=== PATIENT | male | born 1935 | race Caucasian/White ===

== ENCOUNTER 2016-08-23 16:33 | Observation (INO) | payer MEDICARE, OTHER ==
--- NOTE | ~2016-08-23 | DS ---
Discharge Summary [facility] [address] [place]. [address] NAME: NATALIA BELCHER : 33 STATUS : DIS [place] PAT#: [id number] AGE: 81 ADM/REG DATE : 08/23/16 MR#: [id number] REPORT SERV DATE: 08/26/16 DICTATED BY: SELENE PITTMAN DATE: 08/25/16 REPORT STATUS : Draft TRANSCRIBED BY: MODL DATE: 08/25/16 ADMISSION DATE: 08/23/2016 DISCHARGE DATE: 08/25/2016 PRINCIPAL DIAGNOSIS: Cellulitis associated with retained sutures. SECONDARY DIAGNOSES: 1. 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 2. Type 2 diabetes with hypoglycemia and altered mental status. 3. Chronic kidney disease. 4. Coronary artery disease with recent CABG and AV repair. HISTORY OF PRESENT ILLNESS: Please see Dr. Sandra's dictation on 08/23. HOSPITAL COURSE: Admitted with cellulitis of lower extremity associated with suture retention. Patient received antibiotics with actually marked improvement of the first 24 hours. Cultures were negative. It was felt that the edema may have worsened his susceptibility to cellulitis. Sutures were removed. Norvasc was discontinued with hydralazine replacing the medication and JUANY stockings being added. He had no further issues with hypoglycemia off the Amaryl, was restarted that at 1 mg instead of 2 and was able to return home on 08/25 in satisfactory condition. Low sodium diet, 1800 ADA. Activity as tolerated. Follow up with Dr. Matthews as otherwise scheduled and with Dr. Trenton Zhong in 1-2 weeks. CHERRY/JOSE Selene Pittman M.D. / [id number] CC: Malena Henderson II, M.D. Richard Morrison, M.D.
--- NOTE | ~2016-08-23 | HP ---
History And Physical [id number] [place]. [address] NAME: NATALIA BELCHER : 34 STATUS : [facility]M [facility]#: [id number] AGE: 81 ADM/REG DATE : 08/23/16 MR#: [id number] REPORT SERV DATE: 08/23/16 DICTATED BY: CECILIA INTERIANO DATE: 08/23/16 REPORT STATUS : Draft TRANSCRIBED BY: MODL DATE: 08/23/16 DATE OF ADMISSION: 08/23/2016 CHIEF COMPLAINT: Frequent urination and disoriented with fevers this morning. HISTORY OF PRESENT ILLNESS: The patient is an 81-year-old very pleasant, male with past medical history of coronary artery disease, peripheral artery disease, hypertension, CKD, dementia fairly functional, type 2 diabetes, recent admission under Dr. Matthews for CABG x5 aortic valve replacement who presents after having doing fairly well recovery but noticed that he had been more confused today and additionally reporting that he had fevers. Fevers are also reported in the emergency room. The patient also states that he has had frequent urination in the last 24 hours, particularly noted today. Symptoms have been constant, moderate severity but no pain or radiating symptoms although he has had fever with confusion, chills. No nausea or vomiting, has had constipation, no diarrhea. No palpitations. There are no worsening symptoms but no relieving symptoms. Symptoms are still currently present. REVIEW OF SYSTEMS: GENERAL: He has had fevers and chills. EYES: No eye pain or visual changes. ENT: No sore throat or congestion. NEURO: No headache, but did have confusion. SKIN: Does have rash and erythema at prior surgical sites on the lower extremities, left side particularly. RESPIRATORY: No shortness of breath but did have cough. CV: No chest pain or palpitations. GI: No nausea or vomiting, but does have constipation and hemorrhoids. : Does have frequency but no hematuria. MUSCULOSKELETAL: No myalgias or arthralgias. ENDO: No fatigue but did have polyuria. HEME: No bleeding or bruising. IMMUNOLOGIC: No rhinorrhea. PSYCH: No anxiety but mild confusion. PAST MEDICAL HISTORY: History of prostate cancer, prostatectomy, hypertension, hyperlipidemia, type 2 diabetes, CKD stage IIIB, YE, coronary artery disease status post 5 vessel CABG, aortic stenosis status post valve replacement. FAMILY HISTORY: Renal cell carcinoma and NV. SOCIAL HISTORY: Retired infrastructure design engineer, prior smoker, and quit smokeless tobacco approximately two months ago. No alcohol or illicits. and accompanied by son who is at bedside and marine electrician, has daughter who is a preschool assistant. SURGERIES: CABG x5 during most recent hospitalization and aortic valve repair. History And Physical [address] [address] NAME: NATALIA BELCHER : 33 STATUS : ADM [facility]#: [id number] AGE: 81 ADM/REG DATE : 08/23/16 MR#: [id number] REPORT SERV DATE: 08/23/16 DICTATED BY: CECILIA INTERIANO DATE: 08/23/16 REPORT STATUS : Draft TRANSCRIBED BY: JOSE DATE: 08/23/16 ALLERGIES: TO MORPHINE. MEDICATIONS: List still pending. PHYSICAL EXAMINATION: VITAL SIGNS: The patient's blood pressure 135/75, temperature 100.8, pulse 91, respirations 22, and O2 sat 99%. GENERAL: No acute distress. Calm, pleasant, well developed, well nourished. EYES: No scleral icterus. EOMI. ENT: Nares patent. Tongue midline. No thrush. NECK: No JVD. Supple. CHEST: Equal chest expansion. No increased AP diameter. Surgical site is clear and dry. CV: Regular rate. No rubs. Mild systolic ejection murmur. Pulses palpable in all 4 extremities. GROIN: Femoral pulses bounding. RESPIRATORY: Clear to auscultation. No wheezes, rales, no dullness to percussion. ABDOMEN: Soft, nontender, nondistended. Bowel sounds positive. : Uncircumcised, does have hemorrhoids that are nonthrombosed, and groins good pulses bilaterally. EXTREMITIES: Does have left-sided cellulitis on suture sites. Mild redness on right lower extremity less than dime size. NEURO: Alert and oriented. Moves all extremities x4. Does have hard of hearing. Appears to have improved neuro status from initial presentation earlier today. SKIN: Warm and dry with erythema left lower extremities. PSYCH: Appropriate mood and affect. HEME: No acute bleeding or bruising. PERTINENT LABS: CMP; procalcitonin 1.41. Sodium 140, potassium 4.1, chloride 102, bicarb 29, BUN creatinine 38 and 1.93. LFTs within normal limits. Alkaline phosphatase 124. CBC: WBC count 16.5, H and H 11.7 and 35, platelets 234, bands 11, INR 2.5, lactate was 1.1. Urinalysis clear. EKG is normal sinus rhythm with incomplete left bundle status post recent CABG. HOME MEDICATIONS: Norvasc, vitamin C, aspirin, statin, Coreg, Colace, Amaryl, [place], multivitamin, Protonix, Demadex, and warfarin. ASSESSMENT AND PLAN: 1. Cellulitis. 2. Systemic inflammatory response syndrome. 3. Acute encephalopathy. 4. MRSA exposure. 5. Chronic kidney disease IIIB. 6. Diabetes type 2, non-insulin dependent. PLAN: History And Physical [address] [address] NAME: NATALIA BELCHER : 33 STATUS : [facility]#: [id number] AGE: 81 ADM/REG DATE : 08/23/16 MR#: [id number] REPORT SERV DATE: 08/23/16 DICTATED BY: CECILIA INTERIANO DATE: 08/23/16 REPORT STATUS : Draft TRANSCRIBED BY: JOSE DATE: 08/23/16 1. For cellulitis, note that left side surgical site does have MRSA history since recent hospital discharge. We will broaden antibiotic coverage to cefepime and vanc as the patient does have significant SIRS symptoms although cellulitis may be initial agent. We will cover for possible respiratory component and urinary component. 2. SIRS. It is unclear if this is strictly secondary to cellulitis versus additional underlying infection. We will cover for respiratory and urine as patient does have bands, procalcitonin of greater than 1, leukocytosis, tachycardia, and mild encephalopathy. We will deescalate antibiotics as indicated as mental status has already started to improve. Urinalysis within normal limits. 3. Acute encephalopathy, treating SIRS. 4. MRSA exposure, vanc empirically. 5. CKD stage IIIB, follows with Nephrology, currently stable. 6. Diabetes type 2, sliding scale insulin. Hold p.o. medications. All questions answered with the patient family at bedside. DDN/MODL Cecilia Interiano MD / [id number] CC: MD Trenton Zafar II, M.D.
[2016-08-23 14:36] LABS: BASOPHILS 0.2 %; BASOPHILS ABSOLUTE 0.03 10/3/uL (0.0-0.16); EOSINOPHILS 0.2 %; EOSINOPHILS ABSOLUTE 0.03 10/3/uL (0.0-0.53); IMMATURE GRANULOCYTES 0.3 %; LYMPHOCYTES ABSOLUTE 0.82 10/3/uL (0.67-4.30); MEAN CORPUS HGB CONC 33.4 g/dL (32.0-36.0); MEAN CORPUSCULAR HEMOGLOB 29.7 pg (26.0-34.0); MEAN PLATELET VOLUME 8.7 fL (9.2-13.0); MONOCYTES 8.8 %; MONOCYTES ABSOLUTE 1.45 10/3/uL (0.21-1.20); NEUTROPHILS 85.5 %; NEUTROPHILS ABSOLUTE 14.16 10/3/uL (2.02-8.40); PLATELET COUNT 234 10/3/uL (150-400); RBC DISTRIBUTION WIDTH 14.2 % (12.0-16.0)
[2016-08-23 14:38] LABS: ER CBC TAT 0 Hrs 07 Mins; HEMOGLOBIN 11.7 g/dL (13.6-17.8); IMMATURE GRANULOCYTES ABSOLUTE 0.05 10/3/uL (0.0-0.11); MANUAL DIFF NO %; MEAN CORPUSCULAR VOLUME 88.8 fL (80-100); RED CELL COUNT 3.94 10/6/uL (4.7-6.1); WHITE BLOOD CELLS 16.5 10/3/uL (4.5-10.5)
[2016-08-23 14:39] LABS: ASCORBIC ACID (UR NOT ORDER) 40 (NEG); BILIRUBIN, URINE NEGATIVE (NEG); ER URINALYSIS TAT 0 Hrs 07 Mins; KETONE, URINE NEGATIVE (NEG); LEUKOCYTE ESTERASE(NOT OR NEG (NEG); NITRITE (URINE) NEG (NEG); WBC (NOT ORDERED) (RFLEX) < 1 (0-5)
[2016-08-23 14:48] LABS: INTERNATIONAL NORMAL RATI 2.5 UNITS (-); PARTIAL THROMBO TIME 35.3 SEC (22.5-37.2)
[2016-08-23 14:49] LABS: PROTIME (NOT ORD) 26.9 SEC (12.0-14.5)
[2016-08-23 14:50] LABS: CALCIUM, SERUM 8.7 MG/DL (8.5-10.4); CHLORIDE, SERUM 102 MMOL/L (96-112); CO2 (CARBON DIOXIDE) 29 MMOL/L (24-34); CREATININE 1.93 MG/DL (0.70-1.30); GFR AFRICAN AMERICAN 37 ML/MIN (>=60); GFR NON AFRICAN AMERICAN 32 ML/MIN (>=60); POTASSIUM, SERUM 4.1 MMOL/L (3.5-5.3); SGOT(AST) 26 U/L (5-40); SGPT(ALT) 32 U/L (5-65); SODIUM, SERUM 140 MMOL/L (135-148); TOTAL BILIRUBIN 0.6 MG/DL (0-1.2); TOTAL PROTEIN 7.3 G/DL (6.0-8.5)
[2016-08-23 14:51] LABS: A/G RATIO 0.9 (0.7-1.9); ALBUMIN 3.4 G/DL (3.5-5.0); ALKALINE PHOSPHATASE 124 U/L (45-117); BUN (BLOOD UREA NITROGEN) 38 MG/DL (6-23); GLOBULIN 3.9 G/DL (2.5-4.1); GLUCOSE, SERUM 85 MG/DL (60-99)
[2016-08-23 14:54] LABS: LACTATE 1.1 MMOL/L (0.3-2.4)
[2016-08-23 14:58] LABS: BAND NEUTROPHILS 11 %; ER DIFF TAT 0 Hrs 27 Mins; LYMPHOCYTES 5 %; LYMPHOCYTES ABSOLUTE (CALC) 0.83 10/3/uL (0.67-4.30); MONOCYTES 11 %; MONOCYTES ABSOLUTE (CALC) 1.82 10/3/uL (0.21-1.20); NEUTROPHILS ABSOLUTE (CALC) 13.86 10/3/uL (2.02-8.40); PLATELET ESTIMATE ADQ (ADEQUATE); RBC MORPHOLOGY NORM (NORMAL); SEGMENTED NEUTROPHIL (0) 73 %; TOTAL NUCLEATED CELLS 100
[2016-08-23 15:24] LABS: PROCALCITONIN 1.41 ng/mL (<0.5)
[~2016-08-23 16:33] MED LIST: ASAB PO; COREG6 PO; GLUCOPHAGE1000 MG PO; GLUCPH PO; HYZAAR 100/25 T1 TAB PO; LIPITOR40 PO; NAP500 PO
[2016-08-23] MEDS ORDERED: MULTIVITAMI1 PO (16:44)
[2016-08-23] MEDS ORDERED: VITC500 PO (16:45)
[2016-08-23] MEDS ORDERED: PROTONIX PO (16:45)
[2016-08-23] MEDS ORDERED: COREG3 PO (16:47)
[2016-08-23] MEDS ORDERED: NORV5 PO (16:48)
[2016-08-23] MEDS ORDERED: DEMA20 PO (16:48)
[2016-08-23] MEDS ORDERED: LIPITOR40 PO (16:48)
[2016-08-23] MEDS ORDERED: ASAB PO (16:48)
[2016-08-23] MEDS ORDERED: AMARYL2 PO (16:49)
[2016-08-23] MEDS ORDERED: DSS PO (16:49)
[2016-08-23] MEDS ORDERED: COUMADIN4 MG PO (16:49)
[2016-08-23] MEDS ORDERED: NORCO1 TA1 PO (16:50)
[2016-08-24 05:39] LABS: BASOPHILS 0.2 %; BASOPHILS ABSOLUTE 0.03 10/3/uL (0.0-0.16); EOSINOPHILS 0.2 %; EOSINOPHILS ABSOLUTE 0.04 10/3/uL (0.0-0.53); HEMOGLOBIN 10.1 g/dL (13.6-17.8); IMMATURE GRANULOCYTES 0.4 %; IMMATURE GRANULOCYTES ABSOLUTE 0.07 10/3/uL (0.0-0.11); LYMPHOCYTES ABSOLUTE 1.37 10/3/uL (0.67-4.30); MEAN CORPUS HGB CONC 33.7 g/dL (32.0-36.0); MEAN CORPUSCULAR HEMOGLOB 30.8 pg (26.0-34.0); MEAN CORPUSCULAR VOLUME 91.5 fL (80-100); MEAN PLATELET VOLUME 9.1 fL (9.2-13.0); MONOCYTES 8.4 %; MONOCYTES ABSOLUTE 1.44 10/3/uL (0.21-1.20); NEUTROPHILS 82.8 %; NEUTROPHILS ABSOLUTE 14.24 10/3/uL (2.02-8.40); PLATELET COUNT 221 10/3/uL (150-400); RBC DISTRIBUTION WIDTH 14.3 % (12.0-16.0); RED CELL COUNT 3.28 10/6/uL (4.7-6.1); WHITE BLOOD CELLS 17.2 10/3/uL (4.5-10.5)
[2016-08-24 05:40] LABS: MANUAL DIFF NO %
[2016-08-24 05:44] LABS: INTERNATIONAL NORMAL RATI 2.9 UNITS (-); PROTIME (NOT ORD) 29.7 SEC (12.0-14.5)
[2016-08-24 05:47] LABS: BUN (BLOOD UREA NITROGEN) 35 MG/DL (6-23); CALCIUM, SERUM 8.1 MG/DL (8.5-10.4); CHLORIDE, SERUM 105 MMOL/L (96-112); CO2 (CARBON DIOXIDE) 27 MMOL/L (24-34); CREATININE 1.73 MG/DL (0.70-1.30); GFR AFRICAN AMERICAN 42 ML/MIN (>=60); GFR NON AFRICAN AMERICAN 36 ML/MIN (>=60); POTASSIUM, SERUM 3.5 MMOL/L (3.5-5.3); SODIUM, SERUM 142 MMOL/L (135-148)
[2016-08-24 05:51] LABS: GLUCOSE, SERUM 41 MG/DL (60-99)
[2016-08-24 12:00] LABS: % IRON SAT 8 % (20-50); FERRITIN 197 NG/ML (26-388); IRON BINDING CAPACITY 226 MCG/DL (250-450); IRON, SERUM 17 MCG/DL (35-150)
[2016-08-25 05:26] LABS: BASOPHILS 0.3 %; BASOPHILS ABSOLUTE 0.03 10/3/uL (0.0-0.16); EOSINOPHILS 1.5 %; EOSINOPHILS ABSOLUTE 0.15 10/3/uL (0.0-0.53); HEMOGLOBIN 10.1 g/dL (13.6-17.8); IMMATURE GRANULOCYTES 0.3 %; IMMATURE GRANULOCYTES ABSOLUTE 0.03 10/3/uL (0.0-0.11); LYMPHOCYTES 11.8 %; LYMPHOCYTES ABSOLUTE 1.15 10/3/uL (0.67-4.30); MEAN CORPUS HGB CONC 33.7 g/dL (32.0-36.0); MEAN CORPUSCULAR HEMOGLOB 30.9 pg (26.0-34.0); MEAN CORPUSCULAR VOLUME 91.7 fL (80-100); MEAN PLATELET VOLUME 9.1 fL (9.2-13.0); MONOCYTES ABSOLUTE 0.98 10/3/uL (0.21-1.20); NEUTROPHILS 76.1 %; NEUTROPHILS ABSOLUTE 7.42 10/3/uL (2.02-8.40); PLATELET COUNT 200 10/3/uL (150-400); RBC DISTRIBUTION WIDTH 14.2 % (12.0-16.0); RED CELL COUNT 3.27 10/6/uL (4.7-6.1)
[2016-08-25 05:36] LABS: BUN (BLOOD UREA NITROGEN) 36 MG/DL (6-23); CALCIUM, SERUM 7.9 MG/DL (8.5-10.4); CHLORIDE, SERUM 105 MMOL/L (96-112); CO2 (CARBON DIOXIDE) 27 MMOL/L (24-34); CREATININE 1.86 MG/DL (0.70-1.30); GFR AFRICAN AMERICAN 38 ML/MIN (>=60); GFR NON AFRICAN AMERICAN 33 ML/MIN (>=60); POTASSIUM, SERUM 3.7 MMOL/L (3.5-5.3); SODIUM, SERUM 141 MMOL/L (135-148)
[2016-08-25 05:37] LABS: GLUCOSE, SERUM 135 MG/DL (60-99); MANUAL DIFF NO %; WHITE BLOOD CELLS 9.8 10/3/uL (4.5-10.5)
[2016-08-25 07:15] LABS: INTERNATIONAL NORMAL RATI 2.6 UNITS (-); PROTIME (NOT ORD) 27.8 SEC (12.0-14.5)
[2016-08-25] MEDS ORDERED: APRES25 PO (11:49)
[2016-08-25] MEDS ORDERED: MONODOX100 MG PO (11:49)
== END 2016-08-25 13:30 | disposition home or self-care (01) ==
LOC: ER 16:33 → 4SO 16:54
PROVIDERS: Emergency Medicine; Internal Medicine; Student in an Organized Health Care Education/Training Program
DX: T81.4XXA Infection following a procedure, initial encounter (principal); E11.628 Type 2 diabetes mellitus with other skin complications; L03.116 Cellulitis of left lower limb; A41.9 Sepsis, unspecified organism; R65.20 Severe sepsis without septic shock; E11.22 Type 2 diabetes mellitus with diabetic chronic kidney disease; I12.9 Hypertensive chronic kidney disease with stage 1 through stage 4 chronic kidney disease, or unspecified chronic kidney disease; N18.3 Chronic kidney disease, stage 3 (moderate); G93.40 Encephalopathy, unspecified; E78.5 Hyperlipidemia, unspecified; G47.33 Obstructive sleep apnea (adult) (pediatric); I25.10 Atherosclerotic heart disease of native coronary artery without angina pectoris; Z95.1 Presence of aortocoronary bypass graft; Z20.818 Contact with and (suspected) exposure to other bacterial communicable diseases; Z82.49 Family history of ischemic heart disease and other diseases of the circulatory system; Z87.891 Personal history of nicotine dependence; Z88.5 Allergy status to narcotic agent; Z79.899 Other long term (current) drug therapy; Z79.01 Long term (current) use of anticoagulants; Z90.49 Acquired absence of other specified parts of digestive tract; Z98.890 Other specified postprocedural states; Z96.652 Presence of left artificial knee joint; Z96.642 Presence of left artificial hip joint
CPT/HCPCS: 71010; 71020; 80048; 80053; 81001; 82728; 82962; 83540; 83550; 83605; 83735; 84145; 85025; 85610; 85730; 87040; 87449; 93005; 96374; 96375; 96376; 99285; A9270-GY; G0378; J0692; J1750; J3370

== ENCOUNTER 2016-11-10 18:05 | Emergency (ER) | payer MEDICARE, OTHER ==
[2016-11-10 16:52] LABS: BASOPHILS 0.3 %; BASOPHILS ABSOLUTE 0.04 10/3/uL (0.0-0.16); EOSINOPHILS 0.3 %; EOSINOPHILS ABSOLUTE 0.04 10/3/uL (0.0-0.53); ER CBC TAT 0 Hrs 07 Mins; HEMATOCRIT 35.1 % (40.0-51.0); HEMOGLOBIN 11.9 g/dL (13.6-17.8); IMMATURE GRANULOCYTES 0.3 %; IMMATURE GRANULOCYTES ABSOLUTE 0.04 10/3/uL (0.0-0.11); LYMPHOCYTES 9.1 %; LYMPHOCYTES ABSOLUTE 1.22 10/3/uL (0.67-4.30); MEAN CORPUS HGB CONC 33.9 g/dL (32.0-36.0); MEAN CORPUSCULAR HEMOGLOB 31.3 pg (26.0-34.0); MEAN CORPUSCULAR VOLUME 92.4 fL (80-100); MEAN PLATELET VOLUME 8.8 fL (9.2-13.0); MONOCYTES 9.6 %; MONOCYTES ABSOLUTE 1.29 10/3/uL (0.21-1.20); NEUTROPHILS 80.4 %; NEUTROPHILS ABSOLUTE 10.85 10/3/uL (2.02-8.40); PLATELET COUNT 159 10/3/uL (150-400); RBC DISTRIBUTION WIDTH 14.7 % (12.0-16.0); WHITE BLOOD CELLS 13.5 10/3/uL (4.5-10.5)
[2016-11-10 16:54] LABS: MANUAL DIFF NO %
[2016-11-10 16:59] LABS: INTERNATIONAL NORMAL RATI 2.3 UNITS (-); PARTIAL THROMBO TIME 39.2 SEC (22.5-37.2)
[2016-11-10 17:07] LABS: A/G RATIO 0.9 (0.7-1.9); ALBUMIN 3.4 G/DL (3.5-5.0); BUN (BLOOD UREA NITROGEN) 36 MG/DL (6-23); CALCIUM, SERUM 8.5 MG/DL (8.5-10.4); CHLORIDE, SERUM 105 MMOL/L (96-112); CREATININE 1.98 MG/DL (0.70-1.30); GFR AFRICAN AMERICAN 35 ML/MIN (>=60); GFR NON AFRICAN AMERICAN 31 ML/MIN (>=60); GLOBULIN 3.7 G/DL (2.5-4.1); POTASSIUM, SERUM 3.8 MMOL/L (3.5-5.3); SGOT(AST) 23 U/L (5-40); SGPT(ALT) 22 U/L (5-65); SODIUM, SERUM 140 MMOL/L (135-148); TOTAL BILIRUBIN 0.7 MG/DL (0-1.2); TOTAL PROTEIN 7.1 G/DL (6.0-8.5)
[2016-11-10 17:08] LABS: CO2 (CARBON DIOXIDE) 32 MMOL/L (24-34)
[2016-11-10 17:09] LABS: ALKALINE PHOSPHATASE 85 U/L (45-117); GLUCOSE, SERUM 46 MG/DL (60-99)
[~2016-11-10 18:05] MED LIST changes: +AMARYL2 PO; +APRES25 PO; +COREG3 PO; +COUMADIN4 MG PO; +DEMA20 PO; +DSS PO; +MONODOX100 MG PO; +MULTIVITAMI1 PO; +NORCO1 TA1 PO; +NORV5 PO; +PROTONIX PO; +VITC500 PO
[2016-11-10 21:00] LABS: ASCORBIC ACID (UR NOT ORDER) NEG (NEG); BILIRUBIN, URINE NEGATIVE (NEG); ER URINALYSIS TAT 0 Hrs 13 Mins; KETONE, URINE NEGATIVE (NEG); LEUKOCYTE ESTERASE(NOT OR NEG (NEG); NITRITE (URINE) NEG (NEG); WBC (NOT ORDERED) (RFLEX) 1 (0-5)
== END 2016-11-10 20:30 | disposition home or self-care (01) ==
LOC: ER 18:05
PROVIDERS: Emergency Medicine
DX: E11.649 Type 2 diabetes mellitus with hypoglycemia without coma (principal); I73.9 Peripheral vascular disease, unspecified; I25.2 Old myocardial infarction; I12.9 Hypertensive chronic kidney disease with stage 1 through stage 4 chronic kidney disease, or unspecified chronic kidney disease; N18.9 Chronic kidney disease, unspecified; Z95.1 Presence of aortocoronary bypass graft; Z87.891 Personal history of nicotine dependence; Z88.5 Allergy status to narcotic agent; Z79.01 Long term (current) use of anticoagulants; Z79.82 Long term (current) use of aspirin; Z79.84 Long term (current) use of oral hypoglycemic drugs; Z79.899 Other long term (current) drug therapy
CPT/HCPCS: 71010; 80053; 81001; 82962; 85025; 85610; 85730; 96374; 96376; 99284